=== PATIENT | male | born 1975 | race Caucasian/White ===

== ENCOUNTER → 2017-12-09 | Outpatient (CLI) | payer OTHER ==
[~2017-12-09] MED LIST: ALPR-411 PO; SERT-234 PO; [UNRECOGNIZED DRUG - CODE] PO
[2017-12-09 17:38] LABS: EOS % 8.7 %; EOS ABS # 0.86 K/uL (0-0.5); HEMATOCRIT 47.6 % (42-52); HEMOGLOBIN 16.5 g/dL (14.0-18.0); IG# 0.02 K/uL (0.00-0.02); LYMPH % 39.1 %; LYMPH ABS # 3.86 K/uL (1.2-3.4); MEAN CELL VOLUME 92.6 fL (80-100); MEAN CORPUSCULAR HEMOGLOBIN 32.1 pg (25-34); MEAN CORPUSCULAR HGB CONC 34.7 g/dl (32-36); MEAN PLATELET VOLUME 10.6 fL (7.4-10.4); MONO % 10.8 %; MONO ABS # 1.06 K/uL (0.11-0.59); NEUT % 40.2 %; NEUT ABS # 3.96 K/uL (1.4-6.5); PLATELET COUNT 363 K/uL (130-400); RED CELL DISTRIBUTION WIDTH CV 13.3 % (11.5-14.5); RED CELL DISTRIBUTION WIDTH SD 45.2 fL (36.4-46.3); WHITE BLOOD COUNT 9.86 K/uL (4.8-10.8)
[2017-12-09 17:56] LABS: ALBUMIN 3.8 gm/dl (3.4-5.0); ALT/SGPT 27 U/L (12-78); AST/SGOT 14 U/L (15-37); BLOOD UREA NITROGEN 11 mg/dl (7-18); CARBON DIOXIDE 28 mmol/L (21-32); CHOLESTEROL 205 mg/dl (0-200); CREATININE 0.78 mg/dl (0.60-1.40); GLUCOSE 86 mg/dl (70-99); LIPASE 137 U/L (73-393); SODIUM 137 mmol/L (136-145); TOTAL PROTEIN 7.9 gm/dl (6.4-8.2)
[2017-12-09 18:07] LABS: ALKALINE PHOSPHATASE 88 U/L (45-117); LDL CHOLESTEROL CALCULATED 139 mg/dl
== END | disposition home or self-care (01) ==
LOC: C.LABBFT 11:59
PROVIDERS: ATTEND Internal Medicine
DX: R11.2 Nausea with vomiting, unspecified (principal); Z13.6 Encounter for screening for cardiovascular disorders

== ENCOUNTER → 2017-12-15 | Outpatient (CLI) | payer OTHER ==
--- NOTE | 2017-12-15 08:52 | DIAGNOSTIC IMAGING REPORT ---
ABDOMINAL ULTRASOUND, RIGHT UPPER QUADRANT HISTORY: Nausea and vomiting. COMPARISON: None. FINDINGS: Hepatic echogenicity is increased consistent with fatty infiltration with suspected fatty sparing within the gallbladder fossa. Liver morphology is normal. No hepatic lesions are identified and there is no biliary ductal dilatation. The gallbladder is normal. The pancreas is obscured by overlying bowel gas. There is no right hydronephrosis. IMPRESSION: 1. Fatty liver. 2. No gallstones or biliary ductal dilatation. 3. Obscured pancreas due to overlying bowel gas. Electronically signed by: Fazal Maciel M.D. 12/15/2017 8:51 AM Dictated Date/Time: 12/15/2017 8:50 AM
== END | disposition home or self-care (01) ==
LOC: C.ULTR 07:49
PROVIDERS: ATTEND Internal Medicine
DX: R11.2 Nausea with vomiting, unspecified (principal); K76.0 Fatty (change of) liver, not elsewhere classified